=== PATIENT | female | born 1995 | race Caucasian/White ===

== ENCOUNTER 2017-04-09 08:00 | Emergency (ER) | payer BC ==
[2017-04-09 08:13] VITALS: BP 123/77; TEMP 98.4; BMI 24.0
[2017-04-09] MEDS ORDERED: SULFAMETHOXAZOLE/TRIMETHOPRIM 800MG/160MG D.S. TABLET PO ONE (08:54)
--- NOTE | 2017-04-09 08:54 | PDOC ---
History of Present Illness - General Chief Complaint: Bite Stated Complaint: DOG BITE TO RIGHT THIGH Time Seen by Provider: 04/09/17 08:01 History Source: Patient (Patient walked in complaining of a dog bite which occured when she was petting a dog tied in front of a local store here in [place].) Exam Limitations: No Limitations - History of Present Illness Timing/Duration: reports: just prior to arrival Severity: Yes: moderate Location: reports: extremities Past History - Travel Traveled outside of the country in the last 30 days: No Close contact w/someone who was outside of country & ill: No - Past Medical History Allergies/Adverse Reactions: Allergies Allergy/AdvReac Type Severity Reaction Status Date / Time No Known Allergies Allergy Verified 04/09/17 08:01 Home Medications: Ambulatory Orders Sulfamethoxazole/Trimethoprim [Bactrim Ds -] 1 tab PO BID #14 tablet 04/09/17 Other medical history: PT DENIES - Suicide/Smoking/Psychosocial Hx Smoking History: Never smoked Hx Alcohol Use: No Drug/Substance Use Hx: No Substance Use Type: None Review of Systems - Review of Systems Able to Perform ROS?: Yes Is the patient limited [place] proficient: Yes HEENTM: No: Symptoms Reported, See HPI, Eye Pain, Blurred Vision, Tearing, Recent change in vision, Double Vision, Cataracts, Ear Pain, Ocular Prothesis, Ear Discharge, Nose Pain, Nose Congestion, Tinnitus, Nose Bleeding, Hearing Loss , Throat Pain, Throat Swelling, Mouth Pain, Dental Problems, Difficulty Swallowing, Mouth Swelling, Other Respiratory: No: Symptoms reported, See HPI, Cough, Orthopnea, Shortness of Breath, SOB with Exertion, SOB at Rest, Stridor, Wheezing, Productive cough, Hemoptysis, Other Cardiac (ROS): No: Symptoms Reported, See HPI, Chest Pain, Edema, Irregular Heart Rate, Lightheadedness, Palpitations, Syncope, Chest Tightness, Other ABD/GI: No: Symptoms Reported, See HPI, Abdominal Distended, Abd. Pain w/ defecation, Blood Streaked Bowels, Constipated, Diarrhea, Difficulty Swallowing , Nausea, Poor Appetite, Poor Fluid Intake, Rectal Bleeding, Vomiting, Indigestion, Abdominal cramping, Tarry Stools, Other : No: Symptoms Reported, See HPI, Burning, Dysuria, Discharge, Frequency, Flank Pain, Hematuria, Incontinence, Pain, Urgency, Testicular Mass, Testicular Swelling, Lesions, Testicular Pain, Other Musculoskeletal: No: Symptoms Reported, See HPI, Back Pain, Gout, Joint Pain, Joint Swelling, Muscle Pain, Muscle Weakness, Neck Pain, Joint Stiffness, Other Integumentary: Yes: Symptoms Reported, See HPI Neurological: No: Symptoms reported, See HPI, Headache, Numbness, Paresthesia, Pre-Existing Deficit, Seizure, Tingling, Tremors, Weakness, Unsteady Gait, Ataxia, Dizziness, Other Psychiatric: No: Anxiety, Depression, Frequent Crying, Stressors, Sleep Pattern Change, Emotional Problems, Mood Swings, Change in Appetite, Other Endocrine: No: Symptoms Reported, See HPI, Excessive Sweating, Flushing, Intolerance to Cold, Intolerance to Heat, Increased Hunger, Increased Thirst, Increased Urine, Unexplained Weight Gain, Unexplained Weight Loss, Change in Weight, Other All Other Systems: Reviewed and Negative *Physical Exam - Vital Signs Last Vital Signs Temp Pulse Resp BP Pulse Ox 98.4 F 102 H 18 123/77 99 04/09/17 08:02 04/09/17 08:02 04/09/17 08:02 04/09/17 08:02 04/09/17 08:02 - Physical Exam General Appearance: Yes: Nourished, Appropriately Dressed, Mild Distress HEENT: positive: EDMUND Neck: positive: Supple Lymphatic: negative: Adenopathy Musculoskeletal: positive: Normal Inspection Extremity: positive: Normal Capillary Refill Integumentary: positive: Normal Color, Other (small superficial laceration on the anterolateral aspect o the right thigh) Neurologic: positive: Fully Oriented, Alert, Normal Mood/Affect Procedures - Laceration/Wound Repair Right Lower Anterior Lateral Thigh Wound Length: to 2.5 cm Wound Explored: clean Wound's Depth, Shape: superficial, linear Irrigated w/ Saline: Yes Betadine Prep: Yes Anesthesia: 2% Lidocaine Amount of Anesthetic (ccs): 5 Wound Debrided: minimal Wound Repaired With: Sutures Suture Size/Type: 5:0 Number of Sutures: 3 Layer Closure: No Sterile Dressing Applied: Yes Progress Note - Progress Note Progress Note: Patient tolerated procedure well, follow up instructions given. [place] [facility] informed by patient. NIT[facility] information filled out. Advised patient to follow up with both *DC/Admit/Observation/Transfer Diagnosis at time of Disposition: Laceration - Discharge Dispostion Condition at time of disposition: Stable Admit: No - Prescriptions Prescriptions: Sulfamethoxazole/Trimethoprim [Bactrim Ds -] 1 tab PO BID #14 tablet - Patient Instructions Printed Discharge Instructions: DI for Animal Bites Additional Instructions: Clean and dry, daily dressing change , Wound check in 3-4 days , sutures out in 12 days , daily antibiotics twice a day If redness pain return to ER any time
[2017-04-09] MEDS ORDERED: SULFAMETHOXAZOLE/TRIMETHOPRIM 800MG/160MG D.S. TABLET ONE (09:01)
[2017-04-09 09:14] VITALS: PULSE 80
== END 2017-04-09 09:05 | disposition home or self-care (01) ==
LOC: FER 08:00
PROC: 0HQHXZZ Repair Right Upper Leg Skin, External Approach (ICD-10-PCS; principal; 2017-04-09)
DX: S71.111A Laceration without foreign body, right thigh, initial encounter (principal); S71.151A Open bite, right thigh, initial encounter; W54.0XXA Bitten by dog, initial encounter; Y93.89 Activity, other specified; Y92.410 Unspecified street and highway as the place of occurrence of the external cause
CPT/HCPCS: 99283-25

== ENCOUNTER 2017-04-12 09:55 | Emergency (ER) | payer BC ==
[2017-04-12 10:00] VITALS: BP 105/59; PULSE 62; TEMP 98.2; BMI 23.1
--- NOTE | 2017-04-12 10:04 | PDOC ---
Attending Attestation - Resident Resident Name: DakotaromaineArvin - ED Attending Attestation I have performed the following: I have examined & evaluated the patient, The case was reviewed & discussed with the resident, I agree w/resident's findings & plan, Exceptions are as noted - HPI HPI: 21 yo F presents for wound check. She is 3 days s/p dog bite with laceration repair to the R thigh. No swelling, redness, drainage from the wound. No pain. - Physicial Exam PE: GENERAL: Awake, alert, and fully oriented, in no acute distress HEAD: No signs of trauma EXTREMITIES: Normal range of motion, no edema. No clubbing or cyanosis. No cords , erythema, or tenderness SKIN: Warm, Dry, normal turgor, no rashes. +Healing laceration to R mid-thigh, no drainage, no erythema. Sutures in place. - Medical Decision Making Wound already healing well. Will return in 1 week for suture removal.
--- NOTE | 2017-04-12 10:11 | PDOC ---
Suture Removal/Wound Check HPI - History of Present Illness Chief Complaint: Revisit,Wound Recheck Stated Complaint: WOUND CHECK S/P LAC REPAIR FR DOG BITE Time Seen by Provider: 04/12/17 09:57 History Source: Yes: Patient Exam Limitations: Yes: No Limitations Treated at: [facility] ED - Previous ED Treatment Type of procedure performed on last visit: Yes: Laceration Repair Tetanus Immunization: Yes: Up to Date Antibiotics Prescribed: Yes (Bactrim - patient compliant) - Onset of Previous Treatment Date of Occurence: 04/09/17 Comment:: 04/12/17 10:07 The patient is a 21F with no PMH who presents for a wound check after sustaining a superficial dog bite laceration to her R elvis-lateral thigh. Patient denies fever, chills, redness, and draining from wound site. Past History - Past Medical History Allergies/Adverse Reactions: Allergies Allergy/AdvReac Type Severity Reaction Status Date / Time No Known Allergies Allergy Verified 04/12/17 09:57 Home Medications: Ambulatory Orders Sulfamethoxazole/Trimethoprim [Bactrim Ds -] 1 tab PO BID #14 tablet 04/09/17 Other medical history: DENIES - Suicide/Smoking/Psychosocial Hx Smoking History: Never smoked Have you smoked in the past 12 months: No Hx Alcohol Use: No Drug/Substance Use Hx: No Substance Use Type: None Suture Removal/Wound Check PE - Physical Exam Laceration/Wound Check Symptoms: denies: Pain, Fever, Chills, Redness, Discharge , Bleeding, Numbness, Weakness Current Severity Level: None Maximum Severity Level: None Pain Localization: None Location of Laceration/Wound: right: Thigh Pain Radiation: None Medical Decision Making - Medical Decision Making 04/12/17 10:08 The patient's laceration is healing nicely. 3 stitches present. No redness, erythema, draining. Normal temperature. Patient understands to return in 4 days for suture removal and to continue to take her antibiotics as prescribed. *DC/Admit/Observation/Transfer Diagnosis at time of Disposition: Laceration - Discharge Dispostion Disposition: HOME Condition at time of disposition: Stable Admit: No - Patient Instructions Printed Discharge Instructions: DI for Suture Removal Additional Instructions: Please return if symptoms persist, worsen, or if new symptoms arise. Please continue taking your antibiotics as prescribed. Please return in 3-4 days for suture removal. Please return if you have any fever, chills, pain, redness, itching, or draining from your wound.
== END 2017-04-12 10:22 | disposition home or self-care (01) ==
LOC: FER 09:55
DX: Z48.01 Encounter for change or removal of surgical wound dressing (principal)
CPT/HCPCS: 99281-25

== ENCOUNTER 2017-04-19 07:37 | Emergency (ER) | payer BC ==
[2017-04-19 07:50] VITALS: BP 117/71; PULSE 75; TEMP 98.1; BMI 23.1
--- NOTE | 2017-04-19 08:08 | PDOC ---
Suture Removal/Wound Check HPI - History of Present Illness Chief Complaint: Suture/Staple Removal(Here) Stated Complaint: suture removal Time Seen by Provider: 04/19/17 07:39 - Onset of Previous Treatment Comment:: 04/19/17 08:03 22 F here for suture removal. Sustained dog bite to R thigh 10 days ago that was repaired with 3 sutures. Pt denies redness, swelling, drainage, pain. No F/ C. Pt has been in contact with dog's game author. Dog has had all its shots. Pt last saw dog 2 days ago and reports it was behaving normally. Pt completed course of bactrim. Past History - Past Medical History Allergies/Adverse Reactions: Allergies Allergy/AdvReac Type Severity Reaction Status Date / Time No Known Allergies Allergy Verified 04/19/17 07:46 Home Medications: Ambulatory Orders Sulfamethoxazole/Trimethoprim [Bactrim Ds -] 1 tab PO BID #14 tablet 04/09/17 Other medical history: pt denies - Suicide/Smoking/Psychosocial Hx Smoking History: Never smoked Have you smoked in the past 12 months: No Information on smoking cessation initiated: No Hx Alcohol Use: No Drug/Substance Use Hx: No Substance Use Type: None Suture Removal/Wound Check PE - Physical Exam Comments: 04/19/17 08:05 "GENERAL: Awake, alert, and fully oriented, in no acute distress HEAD: No signs of trauma EYES: PERRLA, EOMI, sclera anicteric, conjunctiva clear ENT: Auricles normal inspection, hearing grossly normal, nares patent, oropharynx clear without exudates. Moist mucosa NECK: Nontender, no stepoffs, Normal ROM, supple, no lymphadenopathy, JVD, or masses LUNGS: Breath sounds equal, clear to auscultation bilaterally. No wheezes, and no crackles HEART: Regular rate and rhythm, normal S1 and S2, no murmurs, rubs or gallops ABDOMEN: Soft, nontender, normoactive bowel sounds. No guarding, no rebound. No masses EXTREMITIES: Normal range of motion, no edema. No clubbing or cyanosis. No cords, erythema, or tenderness NEUROLOGICAL: Cranial nerves II through XII intact. 5/5 strength and sensation in all extremities, Normal speech, normal gait SKIN: 1cm laceration R thigh, well healed, [address], no erythema, no induration, no fluctuance, no tenderness, no drainage " *Review of Systems - Review of Systems Comments:: 04/19/17 08:06 "GENERAL/CONSTITUTIONAL: No fever or chills. No weakness. HEAD, EYES, EARS, NOSE AND THROAT: No change in vision. No ear pain or discharge. No sore throat. CARDIOVASCULAR: No chest pain or shortness of breath. RESPIRATORY: No cough, wheezing, or hemoptysis. GASTROINTESTINAL: No nausea, vomiting, diarrhea or constipation. GENITOURINARY: No dysuria, frequency, or change in urination. MUSCULOSKELETAL: No joint or muscle swelling or pain. No neck or back pain. SKIN: No rash NEUROLOGIC: No headache, vertigo, loss of consciousness, or change in strength/ sensation. ENDOCRINE: No increased thirst. No abnormal weight change. HEMATOLOGIC/LYMPHATIC: No anemia, easy bleeding, or history of blood clots. ALLERGIC/IMMUNOLOGIC: No hives or skin allergy. " Medical Decision Making - Medical Decision Making 04/19/17 08:06 22 F here for suture removal s/p dog bite 10 days ago. No s/s infection. Wound is well healed without dehiscence. -3 Sutures removed *DC/Admit/Observation/Transfer Diagnosis at time of Disposition: Encounter for removal of sutures - Discharge Dispostion Disposition: HOME Condition at time of disposition: Stable - Patient Instructions Printed Discharge Instructions: DI for Suture Removal Additional Instructions: If you experience swelling, redness, pain, fevers, or any other concerning symptoms, return to the ER immediately. - Attestations Physician Attestion: 04/19/17 08:07 I, Dr. Jeffery Durham MD, attest that this document has been prepared under my direction and personally reviewed by me in its entirety. I further attest, that it accurately reflects all work, treatment, procedures and medical decision -making performed by me.
== END 2017-04-19 08:12 | disposition home or self-care (01) ==
LOC: FER 07:37
DX: Z48.02 Encounter for removal of sutures (principal)
CPT/HCPCS: 99281-25